=== PATIENT | female | born 1960 | race Caucasian/White ===

== ENCOUNTER 2023-08-07 07:16 | Day surgery (SDC) | payer OTHER ==
[2023-08-04 09:58] VITALS: BMI 20.7
[2023-08-07] MEDS ORDERED: PROPOFOL 60 ML ONE (08:49)
[2023-08-07] MEDS ORDERED: Lidocaine 2% MPF 10 ML AMP (For Epidural Use) ONE (08:49)
== END 2023-08-07 10:40 | disposition home or self-care (01) ==
LOC: CSHSDC 07:16
PROVIDERS: ATTEND Internal Medicine Gastroenterology
PROC: 0DJD8ZZ Inspection of Lower Intestinal Tract, Via Natural or Artificial Opening Endoscopic (ICD-10-PCS; principal; 2023-08-07)
DX: Z12.11 Encounter for screening for malignant neoplasm of colon (principal); K64.9 Unspecified hemorrhoids; K63.89 Other specified diseases of intestine; Z88.2 Allergy status to sulfonamides; Z96.651 Presence of right artificial knee joint
CPT/HCPCS: J2704